=== PATIENT | male | born 1935 | race Two or more races ===

== ENCOUNTER 2024-02-17 15:43 | Emergency (ER) | payer OTHER ==
[~2024-02-17] VITALS: Ht 172.7 cm; Wt 80.3 kg
[2024-02-17] MEDS ORDERED: ELIQUIS5 MG PO (16:10)
[2024-02-17] MEDS ORDERED: CALTRATE 600-D1 EACH PO (16:10)
[2024-02-17] MEDS ORDERED: CENTRUM ADULT80 MCG PO (16:10)
[2024-02-17] MEDS ORDERED: COZAAR50 MG PO (16:10)
[2024-02-17] MEDS ORDERED: PROTONIX20 MG PO (16:10)
[2024-02-17] MEDS ORDERED: LEVOTHYROXINE25 MC2 PO (16:11)
[2024-02-17] MEDS ORDERED: METOPROLOL SUCC25 MG PO (16:11)
[2024-02-17] MEDS ORDERED: ROSUVASTATIN CAL5 MG PO (16:11)
[2024-02-17] MEDS ORDERED: MILLIPRED5 MG PO (16:11)
[2024-02-17] MEDS ORDERED: TAMS0.4C PO (16:12)
[2024-02-17] MEDS ORDERED: [UNRECOGNIZED DRUG - OTHER] BC (16:12)
[2024-02-17] MEDS ORDERED: AMLODIPINE-OLM1 EAC2 PO (16:12)
[2024-02-17] MEDS ORDERED: ACID CONTROLLER20 MG PO (16:12)
[2024-02-17] MEDS ORDERED: HYDRALAZINE HCL50 MG PO (16:13)
[2024-02-17] MEDS ORDERED: MINERAL OIL 30 ML BLIST.PACK PO ONE (20:45)
[2024-02-17] MEDS ORDERED: LACTULOSE 20 G/30 ML BLIST.PACK PO ONE (20:45)
[2024-02-17] MEDS ORDERED: MAGNESIUM HYDROXIDE 400 MG/5 ML ML PO ONE (20:45)
[2024-02-17] MEDS ORDERED: MIRALAX510 GM PO (20:45)
[2024-02-17] MEDS ORDERED: LACTULOSE 20 G/30 ML BLIST.PACK ONE (20:58)
[2024-02-17] MEDS ORDERED: MAGNESIUM HYDROXIDE 30 ML BLIST.PACK PO ONE (20:58)
[2024-02-17] MEDS ORDERED: MINERAL OIL 30 ML BLIST.PACK ONE (20:58)
== END 2024-02-17 21:03 | disposition home or self-care (01) ==
LOC: ER 15:45
DX: K59.00 Constipation, unspecified (principal); I10 Essential (primary) hypertension; E11.9 Type 2 diabetes mellitus without complications